=== PATIENT | male | born 1965 | race Caucasian/White ===

== ENCOUNTER 2018-12-17 10:01 | Emergency (ER) | payer SELFPAY ==
[~2018-12-17] VITALS: Ht 165.1 cm; Wt 74.0 kg
[2018-12-17 10:06] VITALS: BP 125/76
--- NOTE | 2018-12-17 10:08 | NUR ---
patient ambulated to bed2 at this time.
--- NOTE | 2018-12-17 10:08 | NUR ---
BIB SELF. AAO X4 C/O NON RADIATING LEFT EAR PAIN X 2 DAYS. SWELLING, REDNESS, WARM TO TOUCH NOTED TO LEFT EAR. PT DENIES FEVER, N/V/D, DIZZINESS. PT STATES 9/10 PAIN TO LEFT EAR. ER TO EVALUATE PT.
[2018-12-17] MEDS ORDERED: DEXAMETHASONE 10 MG/ML VIAL IM ONE (10:30)
[2018-12-17] MEDS ORDERED: CLINDAMYCIN 600 MG/4 ML VIAL IM ONE (10:30)
[2018-12-17] MEDS ORDERED: hydrOXYzine HCL 25 MG TAB PO ONE (10:30)
--- NOTE | 2018-12-17 10:30 | NUR ---
DR RENAE AT BEDSIDE FOR PT EVALUATION
--- NOTE | 2018-12-17 10:52 | NUR ---
IM AND PO MEDICATION GIVEN ORDERED. PT TOLERATED WELL
--- NOTE | 2018-12-17 11:22 | NUR ---
NO ADVERSE REACTION NOTED S/P MEDICATION ADMINISTRATION. PT AAO X4. FULL CLEAR SPEECH
[2018-12-17 11:34] VITALS: BP 122/75
--- NOTE | 2018-12-17 11:34 | NUR ---
Patient discharged with v/s stable. Written and verbal after care instructions given and explained. Patient alert, oriented and verbalized understanding of instructions. Ambulatory with steady gait. All questions addressed prior to discharge. ID band removed. Patient advised to follow up with PMD. Rx of Clindamycin Hydrochloride, Atarax, Prednisone given. Patient educated on indication of medication including possible reaction and side effects. Opportunity to ask questions provided and answered.
== END 2018-12-17 11:34 | disposition home or self-care (01) ==
LOC: MED 10:01
DX: T63.481A Toxic effect of venom of other arthropod, accidental (unintentional), initial encounter (principal); H92.02 Otalgia, left ear; L08.9 Local infection of the skin and subcutaneous tissue, unspecified; Y92.89 Other specified places as the place of occurrence of the external cause
CPT/HCPCS: 96372; 99283; J1100; J3490

== ENCOUNTER 2023-12-18 11:06 | Emergency (ER) | payer SELFPAY ==
[~2023-12-18] VITALS: Ht 167.6 cm; Wt 70.0 kg
[2023-12-18 11:25] VITALS: BP 132/70; PULSE 74; RESP 17; TEMP 97.7; O2SAT 98
[2023-12-18] MEDS ORDERED: CEPH-588 PO (12:14)
[2023-12-18] MEDS ORDERED: BACI-105 TP (12:14)
[2023-12-18 12:22] VITALS: BP 132/70; PULSE 74; RESP 17; TEMP 97.7; O2SAT 98
== END 2023-12-18 12:22 | disposition home or self-care (01) ==
LOC: MED 11:17
DX: E11.621 Type 2 diabetes mellitus with foot ulcer (principal); L97.519 Non-pressure chronic ulcer of other part of right foot with unspecified severity; Z79.899 Other long term (current) drug therapy
CPT/HCPCS: 73660; 82948; 99283; Q0092